=== PATIENT | male | born 1960 | race Caucasian/White ===

== ENCOUNTER 2016-07-31 09:29 | Outpatient (CLI) | payer OTHER ==
--- NOTE | 2016-07-31 13:15 | DIAGNOSTIC IMAGING REPORT ---
PROCEDURE: MR UPPER EXTREMITY W/O CONT-LT INDICATION: LEFT ROTATOR CUFF TEAR TECHNIQUE: PD and PD fat sat axial, T1 and PD fat sat coronal, PD and STIR sagittal sequences through the shoulder. COMPARISON: 11/08/2015 from [facility] FINDINGS: Rotator cuff: Mild tendinopathy and bursal surface irregularity involving the infraspinatus fibers. Slight attenuation and intermediate signal involving both the undersurface anteriorly, and the bursal surface posteriorly, of the supraspinatus tendon. The insertional interstitial tear of the infraspinatus is no longer seen. Mild tendinopathy of the subscapularis tendon. It, and the transverse humeral ligament appear intact. Mild tendinopathy has increased since the previous study. Biceps tendon: Biceps tendon is normal in thickness and position. In the absence of intra-articular contrast, the rotator interval structures appear grossly intact. Osseous structures and articular surfaces: Type 2 acromion with moderate hypertrophy at the acromioclavicular joint. Mild undersurface spurring of the anterior acromion. Normal marrow signal. Normal bony alignment. Moderate diffuse thinning of the glenoid fossa cartilage centrally and superiorly. Mild cartilage thinning of the humeral head. No significant change. Labral ligamentous complex: The previously seen small superior labral tear is less apparent, there may have been interval healing. Some focal heterogeneous labral signal is seen on series 106 image 9. There is no extension into the posterior labrum. The superior recess is visible. A [place] complex is present, best demonstrated by the prior arthrogram. There is intermediate signal within the middle glenohumeral ligament without intrinsic tearing. Anterior and posterior bands of the inferior glenohumeral ligament grossly intact. Fluid, soft tissues, and joint space: Small amount of edema is seen in the subacromial subdeltoid bursa, and there is slight intramuscular edema in the overlying deltoid. No glenohumeral joint effusion. No loose intra-articular bodies. The rotator cuff musculature is normal in bulk and signal. Neurovascular bundle appears grossly normal. IMPRESSION: 1. Mild rotator cuff tendinopathy with low grade partial thickness tearing of supra and infraspinatus tendons, stable to slightly improved (no longer seen is the infraspinatus interstitial tear). 2. Mild tendinopathy in the subscapularis tendon has developed since the previous study. 3. Moderate chondromalacia of the glenoid fossa and mildly thinned cartilage in the humeral head. 4. Mild intrinsic heterogeneous labral signal without evidence of discrete labral tear. If labral tears a concern, MR arthrogram is recommended. 5. [place] complex. 6. Mild subacromial subdeltoid bursitis.
== END 2016-07-31 23:00 ==
LOC: MRI SRH 09:29
DX: M75.112 Incomplete rotator cuff tear or rupture of left shoulder, not specified as traumatic (principal); M94.212 Chondromalacia, left shoulder; M75.52 Bursitis of left shoulder